=== PATIENT | female | born 1950 | race Caucasian/White ===

== ENCOUNTER 2021-06-03 20:40 | Emergency (ER) | payer OTHER ==
[~2021-06-03] VITALS: Ht 152.4 cm; Wt 61.2 kg
[~2021-06-03 20:40] MED LIST: CLONAZEPAM; DESYREL100 MG PO; EFFEXOR75 MG PO; FIORICET 50-321 EACH PO; GABAPENTIN100 MG PO; MIDODRINE HCL 55 M1 PO; VICODIN; [UNRECOGNIZED DRUG - REMARK]
[2021-06-03] MEDS ORDERED: GABAPENTIN600 M1 PO (20:57)
[2021-06-03] MEDS ORDERED: CLONAZEPAM 1 MG1 M1 PO (20:57)
[2021-06-03] MEDS ORDERED: EFFEXOR XR150 MG PO (20:58)
[2021-06-03] MEDS ORDERED: TRIAMTERENE50 MG PO (20:58)
[2021-06-03] MEDS ORDERED: TRAZODONE HCL50 MG PO (20:58)
[2021-06-03] MEDS ORDERED: LIPITOR 40 MG T40 M1 PO (20:58)
[2021-06-03 22:10] VITALS: BP 108/50
[2021-06-03] MEDS ORDERED: MEDROLDOSEPACK PO (22:10)
[2021-06-03] MEDS ORDERED: FLEXERIL PO (22:10)
== END 2021-06-03 22:20 | disposition home or self-care (01) ==
LOC: M.ERS 20:40
DX: S20.221A Contusion of right back wall of thorax, initial encounter (principal); S70.01XA Contusion of right hip, initial encounter; Z88.5 Allergy status to narcotic agent; Z88.6 Allergy status to analgesic agent; Z88.0 Allergy status to penicillin; Z88.2 Allergy status to sulfonamides; Z79.899 Other long term (current) drug therapy; Z90.710 Acquired absence of both cervix and uterus; W18.30XA Fall on same level, unspecified, initial encounter; Y93.89 Activity, other specified; Y92.89 Other specified places as the place of occurrence of the external cause; Y99.8 Other external cause status